=== PATIENT | female | born 1965 | race Caucasian/White ===

== ENCOUNTER → 2017-10-30 | Outpatient (CLI) | payer OTHER ==
[~2017-10-30] MED LIST: BACL10TA PO; COMMODE 3-IN-11 MIS; CPMMACHINE; DIAZ5TAB PO; ECASA81 PO; ESCI20TA PO; IBUP1TAB7 PO; IBUP600 PO; OXYC1TAB36 PO; PERC5TAB12 PO; WALKER WHEELS/F1 MIS
== END ==
LOC: CPRE 11:41
PROVIDERS: ATTEND Orthopaedic Surgery Orthopaedic Surgery of the Spine
DX: M17.11 Unilateral primary osteoarthritis, right knee (principal)

== ENCOUNTER 2017-11-05 06:02 | Inpatient (IN) | payer OTHER ==
[~2017-11-05] VITALS: Ht 154.9 cm; Wt 107.0 kg
[~2017-11-05 06:02] MED LIST changes: -COMMODE 3-IN-11 MIS; -CPMMACHINE; -ECASA81 PO; -IBUP600 PO; -OXYC1TAB36 PO; -WALKER WHEELS/F1 MIS
[2017-11-05] MEDS ORDERED: FAT EMULSION 20% INJ 0 ML ONE (06:42)
[2017-11-05] MEDS ORDERED: CHLORHEXIDINE GLUCONATE 4% SOLN 120 ML BTL TOPICAL SCH (06:45)
[2017-11-05] MEDS ORDERED: INSULIN HUMAN REGULAR 1,000 UNITS/10 ML VIAL SQ PRN (06:45)
[2017-11-05] MEDS ORDERED: CHLORHEXIDINE GLUCONATE 2 % 1 PACK (2 CLOTHS) TOPICAL PRN (06:45)
[2017-11-05] MEDS ORDERED: METOPROLOL TARTRATE 25 MG TAB PO PRN (06:45)
[2017-11-05] MEDS ORDERED: POVIDONE IODINE 5% (ANTISEPSIS KIT) 4 APPLICATIONS EACH NARE PRN (06:45)
[2017-11-05] MEDS ORDERED: SODIUM CHLORID 0.9% 500 ML IV PRN (06:45)
[2017-11-05] MEDS ORDERED: GENTAMICIN SULFATE 80 MG/2 ML VIAL ONE (07:05)
[2017-11-05] MEDS ORDERED: PROPOFOL 500 MG/50 ML INJ 50 ML ONE (07:24)
[2017-11-05] MEDS ORDERED: SODIUM CHLOR 0.9% 250 ML INJ 250 ML ONE (07:24)
[2017-11-05] MEDS ORDERED: VANCOMYCIN HCL 1000 MG VIAL ONE (07:25)
[2017-11-05] MEDS: LACTATED RINGER'S 1000 ML IV PRN (07:30)
[2017-11-05] MEDS ORDERED: BUPIVACAINE HCL PF 0.25% 30 ML VIAL ONE (07:47)
[2017-11-05] MEDS ORDERED: BUPIVACAINE/EPINEPHRINE 0.25% 50 ML VIAL ONE (07:48)
[2017-11-05] MEDS ORDERED: EXPAREL PERI-ARTICULAR INJECTION (TOTAL VOL. 60 ML) P-ARTICULR SCH ×2 (08:30)
[2017-11-05] MEDS ORDERED: TRANEXAMIC ACID INJ 975 MG in SODIUM CHLORIDE 0.9% INJ 100 ML IV SCH (08:30)
[2017-11-05] MEDS ORDERED: MIDAZOLAM HCL 2 MG/2 ML VIAL ONE (08:46)
[2017-11-05] MEDS ORDERED: BUPIVACAINE LIPOSOME PF 1.3% 20 ML VIAL ONE (08:46)
[2017-11-05] MEDS: ceFAZolin 2 GM PREMIX 50 ML IV SCH ×2 (10:25→10:26)
--- NOTE | 2017-11-05 11:13 | PD.OP ---
cc: Morgan Maravilla MD Operative Report Date of Surgery: Nov 05, 2017 Preoperative Diagnosis: Osteoarthritis right knee. Valgus deformity, right knee Postoperative Diagnosis: Same Procedure: Right total knee replacement arthroplasty Anesthesia: Spinal with regional block for pain control Surgeon: Morgan Maravilla Search Engine Marketing Manager(s): MARCEL Longo Operation and Findings: EBL: 50 cc INDICATION: This patient presents with long-standing arthritis of the knee. She has a valgus deformity and significant instability of this developing. Attachment record documents conservative measures. The patient now presents for surgical treatment. NOTE: Catherine Longo PA-C was present for the entire surgical procedure as my educational assistant teacher. In my medical opinion her skill and care was necessary for proper management of this patient. TOURNIQUET TIME: 58 minutes COMPANY: [employer] FEMUR: Size 2, cruciate retaining TIBIA: Size 2, fixed bearing PATELLA: 29 mm POLYETHYLENE INSERT: 11 mm PROCEDURE: This patient was brought the operating room and anesthetized in the supine position. The patient was positioned supine on the table. The tourniquet was placed about the thigh, and the leg was scrubbed with alcohol followed by Hibiclens followed by ChloraPrep and draped sterilely. A timeout was done, and antibiotics were given. After exsanguination the tourniquet was inflated to 250 mmHg. An anterior incision was made and a median parapatellar arthrotomy was performed. The patella was released laterally and subluxed allowing freehand cut of the patella which was then sized. A metal cap was placed over the exposed patellar surface for protection. A airline transport pilot hole was placed in the distal femur allowing a 5 valgus cut removing 10 mm from the distal femur. Anterior posterior and chamfer cuts were made. The posterior stabilize osteotomy was made. The attention was directed to the tibia. Retractors were positioned. The external alignment guide was used allowing the lateral tibia to be used as referencing guide and cut utilizing an oscillating saw taking care to avoid any injury to the surrounding soft tissues. This was sized properly. Trial reduction showed that the insert fit nicely. The patient had range of motion extension 0 flexion 125. A medial release was not necessary. The bony surfaces prepared. On the back table 2 packets of methylmethacrylate were mixed. The components were cemented. Excess cement was removed. The tourniquet let down and hemostasis was controlled. The final plastic insert was inserted. Range of motion was the same as previously noted. A drain was brought through a separate stab incision. The arthrotomy was repaired with interrupted #1 Vicryl suture, subcutaneous tissue 2-0 Vicryl suture and skin with metallic peter A sterile dressing was applied. Sponge counts, needle counts and instrument counts were all correct. The patient tolerated procedure well and was taken to recovery in satisfactory condition. FINDINGS: There was a severe arthritis of the lateral compartment with significant valgus deformity. The final solution was excellent. No complication was appreciated. Morgan Maravilla MD Nov 05, 2017 11:13
[2017-11-05] MEDS ORDERED: oxyCODONE/ACETAMINOPHEN 10 MG/325 MG TAB PO PRN (11:15)
[2017-11-05] MEDS ORDERED: Post-op Orders (for Pharmacy) XX ONE (11:15)
[2017-11-05] MEDS ORDERED: MORPHINE SULFATE 8 MG/ML INJ IM PRN (11:15)
[2017-11-05] MEDS ORDERED: DIAZEPAM 5 MG TAB PO PRN (11:15)
[2017-11-05] MEDS ORDERED: NALOXONE HCL 0.4 MG/ML AMP IV PUSH PRN (11:15)
[2017-11-05] MEDS ORDERED: MISCELLANEOUS NURSING INFORMATION XX PRN (11:15)
[2017-11-05] MEDS ORDERED: MISCELLANEOUS PHARMACY INFORMATION XX ONE (11:15)
[2017-11-05] MEDS ORDERED: ECASA81 PO (11:17)
[2017-11-05] MEDS ORDERED: OXYC1TAB36 PO (11:17)
[2017-11-05] MEDS ORDERED: *morphine SULFATE 4 MG/ML PERIprocedure ONLY ONE (11:38)
[2017-11-05] MEDS ORDERED: *morphine SULFATE 8 MG/ML PERIprocedure ONLY ONE ×2 (11:49→12:12)
[2017-11-05] MEDS: LACTATED RINGER'S 1000 ML INJ 1,000 ML IV SCH ×2 (11:50→23:36)
[2017-11-05] MEDS ORDERED: PROPOFOL 200 MG/20 ML AMP IV ONE (12:00)
[2017-11-05] MEDS ORDERED: ONDANSETRON HCL 4 MG/2 ML VIAL IV ONE (12:00)
[2017-11-05] MEDS ORDERED: ROCURONIUM INJ 50 MG/5 ML SYRINGE IV PUSH ONE (12:00)
[2017-11-05] MEDS ORDERED: DEXAMETHASONE SOD PHOS 4 MG/ML VIAL IV ONE (12:00)
[2017-11-05] MEDS ORDERED: PHENYLEPH/NS 1000 MCG/10 ML SYR IV ONE (12:00)
[2017-11-05] MEDS ORDERED: SODIUM CHLOR 0.9% 1000 ML INJ 1,000 ML IV ONE (12:00)
[2017-11-05] MEDS ORDERED: NEOSTIGMINE 5 MG/5 ML SYRINGE IV PUSH ONE (12:00)
[2017-11-05] MEDS ORDERED: GLYCOPYRROLATE 1 MG/5 ML SYRINGE IV PUSH ONE (12:00)
--- NOTE | 2017-11-05 12:09 | RADRPT ---
EXAM DATE/TIME: 11/05/2017 11:45 [facility] COMPARISON: No previous studies available for comparison. INDICATIONS : Post op right knee surgery. MEDICAL HISTORY : None. SURGICAL HISTORY : None. ENCOUNTER: Initial ACUITY: 1 day PAIN SCORE: 8/10 LOCATION: Right knee FINDINGS: AP and lateral views of the right knee following recent total knee arthroplasty demonstrate metallic hardware at the distal femur and proximal tibia with radiolucent patellar component. No joint effusio n is identified. There is soft tissue gas, as expected. Skin peter are present anteriorly. CONCLUSION: Expected changes following recent right total knee arthroplasty. Bebeto Nuñez MD on November 05, 2017 at 12:06 Board Certified Radiologist. This report was verified electronically.
[2017-11-05] MEDS ORDERED: ASPIRIN EC 81 MG TABEC PO ONE (13:00)
[2017-11-05] MEDS ORDERED: DO NOT ADM ANY ANTICOAGULANT DRUGS PRN ×2 (13:00→14:00)
[2017-11-05 14:00] VITALS: BP 129/64; PULSE 67; RESP 16; TEMP 97; O2SAT 100
--- NOTE | 2017-11-05 14:22 | HHI.DS ---
Discharge Summary Admission Date Nov 05, 2017 at 06:02 Discharge Date: Nov 07, 2017 Admitting Diagnosis Osteoarthritis right knee Diagnosis: Procedures Right total knee replacement arthroplasty Brief History This is a 52 year old female patient with significant lateral compartment arthritis and valgus deformity of the right knee. She's had extensive conservative care which is documented in the attached records. She presents for surgical treatment. She was taken the operating room the date of admission. She was transferred to the floor postoperatively. She had a routine postoperative course for total knee replacement surgery. Imaging Postoperative x-rays show satisfactory total knee replacement surgery without complication PE at Discharge Stable medically. Neurologic examination is normal. Swelling is mild Hospital Course The patient was admitted for surgical treatment. She went to surgery on the date of her admission at which time she had a cemented total knee replacement arthroplasty. There were no complications were noted. Postoperative x-rays were satisfactory. She progressed well to physical therapy was felt be a candidate for discharge to home on the second postoperative day Pt Condition on Discharge: Good Discharge Disposition: Discharge Home Discharge Instructions Diet Instructions: As Tolerated, No Restrictions (Weightbearing as tolerated) Activities You Can Perform: Weight Bearing as Emely Morgan Maravilla MD Nov 05, 2017 14:22
--- NOTE | 2017-11-05 14:23 | HHI.FF ---
Face to Face Verification Diagnosis: (1) Primary osteoarthritis of right knee Physical Therapy Gait training, Safety evaluation, Transfer training, bed to chair Knee: Total knee, Protocol: Right, Full weight bearing Canvas Knee Splint: When in bed & 2 pillows btw thighs Right LE Weight Bearing: WB as tolerated Right LE Range of Motion: Active ROM Additional Instructions PT 4 days/wk for 2 weeks. WBAT RLE. TKA protocol. CPM bid as tolerated, 0-60 with goal of 100 flexion. Nursing RN Days per Week: 2 x Week(s): 1 Dressing Changes: Do not change dressing Additional Instructions Vitals assessment. Dressing assessment - do not change unless saturated. I have seen patient Joseph Byrd on 11/05/17. My clinical findings support the need for the requested home health care services because: Limited ability to care for self High risk of falls I certify that my clinical findings support that this patient is homebound because: Post-op weakness Unsteady gait/balance Morgan Maravilla MD Nov 05, 2017 14:23 Mary Carmen Tavares Nov 05, 2017 22:45
[2017-11-05] MEDS ORDERED: WALKER WHEELS/F1 MIS (14:25)
[2017-11-05 16:12] VITALS: BP 110/57; PULSE 70; RESP 18; TEMP 96.7; O2SAT 99
[2017-11-05] MEDS: oxyCODONE/ACETAMINOPHEN 10 MG/325 MG TAB PO PRN ×2 (16:27→21:54)
[2017-11-05 19:59] VITALS: BP 120/56; PULSE 77; RESP 18; TEMP 97.1; O2SAT 98
[2017-11-05] MEDS: BACLOFEN 10 MG TAB PO SCH (21:53)
[2017-11-05] MEDS: SENNOSIDES 8.6 MG TAB PO SCH (21:53)
[2017-11-05] MEDS: ASPIRIN EC 81 MG TABEC PO SCH (21:53)
[2017-11-05] MEDS: MAGNESIUM HYDROXIDE SUSP 30 ML CUP PO SCH (21:53)
[2017-11-05] MEDS ORDERED: COMMODE 3-IN-11 MIS (22:46)
[2017-11-05] MEDS ORDERED: CPMMACHINE (22:47)
--- NOTE | 2017-11-05 22:49 | HHI.DCPOC ---
Discharge Care Plan Diagnosis: (1) Primary osteoarthritis of right knee Your Health Problems Are: Difficulty with ADL Incision/Drains Swelling Goals to Promote Your Health * To prevent worsening of your condition and complications * To maintain your health at the optimal level Directions to Meet Your Goals Take your medications as prescribed Follow your dietary instruction Follow activity as directed Keep your appointments as scheduled Take your immunizations and boosters as scheduled If your symptoms worsen call your PCP, if no PCP go to Urgent Care Center or Emergency Room Smoking is Dangerous to Your Health. Avoid second hand smoke Call the 24-hour hour crisis hotline for domestic abuse at Mary Carmen Tavares Nov 05, 2017 22:49
[2017-11-05 23:39] VITALS: BP 121/68; PULSE 68; RESP 18; TEMP 97.6; O2SAT 99
[2017-11-06] VITALS (9 sets, daily range): BP systolic 123–157; BP diastolic 60–79; PULSE 71–85; RESP 17–18; TEMP 96.9–98.2; O2SAT 95–99
[2017-11-06] MEDS: oxyCODONE/ACETAMINOPHEN 10 MG/325 MG TAB PO PRN ×5 (02:10→23:59)
[2017-11-06] MEDS: LACTATED RINGER'S 1000 ML IV PRN (02:12)
[2017-11-06 05:23] LABS: HEMATOCRIT 22.3 % (35.0-46.0)
[2017-11-06 05:37] LABS: HEMOGLOBIN 6.8 GM/DL (11.6-15.3)
--- NOTE | 2017-11-06 07:47 | PD.ORT.PN ---
Subjective Subjective Remarks Patient comfortable. Ambulating with minimal assistance using a walker. Objective Vitals Vital Signs Date Time Temp Pulse Resp B/P (MAP) Pulse Ox O2 Delivery O2 Flow Rate FiO2 11/06/17 05:17 97.9 72 18 123/60 (81) 99 11/05/17 23:39 97.6 68 18 121/68 (85) 99 11/05/17 19:59 97.1 77 18 120/56 (77) 98 11/05/17 16:12 96.7 70 18 110/57 (74) 99 11/05/17 14:00 97.0 67 16 129/64 (85) 100 11/05/17 13:30 98.0 71 18 140/70 (93) 94 Room Air 11/05/17 13:15 70 18 118/62 (80) 95 Room Air 11/05/17 13:00 69 18 125/64 (84) 97 Nasal Cannula 3 11/05/17 12:45 73 18 126/61 (82) 97 Nasal Cannula 3 11/05/17 12:30 68 18 139/76 (97) 100 Nasal Cannula 3 11/05/17 12:15 68 18 139/76 (97) 100 Nasal Cannula 3 11/05/17 12:00 74 18 133/75 (94) 98 Nasal Cannula 3 11/05/17 11:45 75 16 141/76 (97) 99 Nasal Cannula 3 11/05/17 11:32 97.7 85 16 138/74 (95) 97 I/O 11/05/17 11/05/17 11/05/17 11/06/17 11/06/17 11/06/17 07:00 15:00 23:00 07:00 15:00 23:00 Intake Total 2300 ml 480 ml 1460 ml Output Total 50 ml Balance 2250 ml 480 ml 1460 ml Intake Oral 600 ml 480 ml 360 ml IV Total 1100 ml Other 1700 ml Output Estimated Blood Loss 50 ml # Voids 1 3 4 # Bowel Movements 0 0 Result Diagram: 11/06/17 0400 Imaging Last 24 hours Impressions Knee X-Ray 11/05/17 1106 Signed Impressions: Service Date/Time: October 11:45 - CONCLUSION: Expected changes following recent right total knee arthroplasty. Bebeto Nuñez MD Procedures Right total knee replacement arthroplasty Objective Remarks Dressing dry. Alignment looks satisfactory. Hemoglobin 6.8, but was only 8.3 preoperative. No calf tenderness. Neuro exam normal Assessment & Plan Assessment and Plan Osteoarthritis right knee. Valgus deformity right knee. Surgery: Right TKA: POD #1. PLAN: Weightbearing as tolerated. Transfused 2 units packed red blood cells. Check hemoglobin in the morning. Discharge to home on Thursday morning. No dressing change. Home healthcare and home PT. Aspirin 81 mg twice a day for 30 days. Oxycodone 10 for pain. Was on pain medicines before surgery Morgan Maravilla MD Nov 06, 2017 07:47
[2017-11-06] MEDS: ASPIRIN EC 81 MG TABEC PO SCH ×2 (07:58→20:07)
[2017-11-06] MEDS: MAGNESIUM HYDROXIDE SUSP 30 ML CUP PO SCH ×2 (07:58→20:08)
[2017-11-06] MEDS: ESCITALOPRAM OXALATE 20 MG TAB PO SCH (07:58)
[2017-11-06] MEDS: BACLOFEN 10 MG TAB PO SCH (20:07)
[2017-11-06] MEDS: SENNOSIDES 8.6 MG TAB PO SCH (20:08)
[2017-11-07] MEDS: LACTATED RINGER'S 1000 ML INJ 1,000 ML IV SCH (00:36)
[2017-11-07] MEDS: oxyCODONE/ACETAMINOPHEN 10 MG/325 MG TAB PO PRN ×2 (03:54→08:21)
[2017-11-07 05:30] VITALS: BP 141/70; PULSE 80; RESP 17; TEMP 97.7; O2SAT 96
[2017-11-07 07:32] VITALS: BP 129/58; PULSE 75; RESP 18; TEMP 97.5; O2SAT 96
--- NOTE | 2017-11-07 07:55 | PD.ORT.PN ---
Subjective Post Op Day #: 2 Subjective Remarks pain tolerable. feeling better. Objective Vitals Vital Signs Date Time Temp Pulse Resp B/P (MAP) Pulse Ox O2 Delivery O2 Flow Rate FiO2 11/07/17 07:32 97.5 75 18 129/58 (81) 96 11/07/17 05:30 97.7 80 17 141/70 (93) 96 11/06/17 23:30 97.5 84 18 157/72 (100) 96 11/06/17 20:15 98.2 83 17 136/71 (92) 97 11/06/17 17:15 97.4 85 17 140/72 95 11/06/17 16:00 97.3 71 18 139/79 (99) 97 11/06/17 15:00 97.3 71 18 139/79 97 11/06/17 12:15 96.9 76 18 144/75 96 11/06/17 12:00 97.9 74 17 128/68 96 11/06/17 12:00 97.9 74 17 128/68 (88) 96 11/06/17 08:23 97.7 76 18 130/70 (90) 99 I/O 11/06/17 11/06/17 11/06/17 11/07/17 11/07/17 11/07/17 07:00 15:00 23:00 07:00 15:00 23:00 Intake Total 1460 ml 1150 ml 880 ml 0 ml Balance 1460 ml 1150 ml 880 ml 0 ml Intake Oral 360 ml 750 ml 480 ml IV Total 1100 ml 0 ml Packed Cells 400 ml 400 ml Blood Product IV Normal Saline Flush 0 ml # Voids 4 5 2 # Bowel Movements 0 0 0 Result Diagram: 11/07/17 0417 Imaging Last 24 hours Impressions Knee X-Ray 11/05/17 1106 Signed Impressions: Service Date/Time: October 11:45 - CONCLUSION: Expected changes following recent right total knee arthroplasty. Bebeto Nuñez MD Procedures Right total knee replacement arthroplasty Objective Remarks in bed, nad Dressing dry. No calf tenderness. Neuro exam normal Assessment & Plan Ortho Post Op Day #: 2 Problem List: Assessment and Plan Osteoarthritis right knee. Valgus deformity right knee. Surgery: Right TKA: POD #2. PLAN: Weightbearing as tolerated. Transfused 2 units packed red blood cells yesterday Discharge to home on Thursday morning - cleared for d/c No dressing change. Home healthcare and home PT. Aspirin 81 mg twice a day for 30 days. Oxycodone 10 for pain. Was on pain medicines before surgery Tai Stanley Nov 07, 2017 07:55
[2017-11-07] MEDS: MAGNESIUM HYDROXIDE SUSP 30 ML CUP PO SCH (08:19)
[2017-11-07] MEDS: ESCITALOPRAM OXALATE 20 MG TAB PO SCH (08:20)
[2017-11-07] MEDS: ASPIRIN EC 81 MG TABEC PO SCH (08:20)
[2017-11-07 11:42] VITALS: BP 130/62; PULSE 80; RESP 18; TEMP 97.4; O2SAT 95
== END 2017-11-07 12:36 | disposition home health service (06) | DRG 470 ==
LOC: HSDI 06:02 → N06B 14:01
PROVIDERS: ADMIT Orthopaedic Surgery Orthopaedic Surgery of the Spine; ATTEND Orthopaedic Surgery Orthopaedic Surgery of the Spine
PROC: 3E0T3BZ Introduction of Anesthetic Agent into Peripheral Nerves and Plexi, Percutaneous Approach (ICD-10-PCS; 2017-11-05)
PROC: 0SRC0J9 Replacement of Right Knee Joint with Synthetic Substitute, Cemented, Open Approach (ICD-10-PCS; principal; 2017-11-05 09:03)
PROC: 30233N1 Transfusion of Nonautologous Red Blood Cells into Peripheral Vein, Percutaneous Approach (ICD-10-PCS; 2017-11-06)
DX: M17.11 Unilateral primary osteoarthritis, right knee (principal); Z68.41 Body mass index [BMI] 40.0-44.9, adult; F32.9 Major depressive disorder, single episode, unspecified; F41.9 Anxiety disorder, unspecified; F17.210 Nicotine dependence, cigarettes, uncomplicated; M21.061 Valgus deformity, not elsewhere classified, right knee; E66.9 Obesity, unspecified; D64.9 Anemia, unspecified
CPT/HCPCS: 36430; 73560; 85014; 85018; 86850; 86900; 86901; 86920; 94150; C1776; C9290; J0690; J1100; J1580; J2250; J2270; J2370; J2405; J2710; J3010; J3370; J7030; J7050; J7120; L1830; P9016

== ENCOUNTER 2017-12-11 23:17 | Emergency (ER) | payer OTHER ==
[~2017-12-11] VITALS: Ht 154.9 cm; Wt 96.0 kg
[~2017-12-11 23:17] MED LIST changes: +COMMODE 3-IN-11 MIS; +CPMMACHINE; +ECASA81 PO; +OXYC1TAB36 PO; +WALKER WHEELS/F1 MIS
[2017-12-11 23:22] VITALS: BP 140/75; PULSE 86; RESP 18; TEMP 97.4; O2SAT 100
[2017-12-12] MEDS ORDERED: HYDR-3516 PO (08:37)
[2017-12-12] MEDS ORDERED: CLIN150C14 PO (08:37)
== END 2017-12-11 23:49 | disposition left against medical advice (07) ==
LOC: PHED 23:17
DX: K08.89 Other specified disorders of teeth and supporting structures (principal); Z53.21 Procedure and treatment not carried out due to patient leaving prior to being seen by health care provider
CPT/HCPCS: 99281

== ENCOUNTER 2017-12-12 08:16 | Emergency (ER) | payer OTHER ==
[~2017-12-12] VITALS: Ht 154.9 cm; Wt 93.0 kg
[2017-12-12 08:19] VITALS: BP 177/90; PULSE 83; RESP 16; TEMP 97.9; O2SAT 99
[2017-12-12] MEDS ORDERED: CLIN150C14 PO (08:37)
[2017-12-12] MEDS ORDERED: HYDR-3516 PO (08:37)
--- NOTE | 2017-12-12 08:38 | PD ---
HPI Chief Complaint: Tooth pain Time Seen by Provider: 08:31 Travel History International Travel<30 days: No Contact w/Intl Traveler<30days: No Traveled to known affect area: No History of Present Illness HPI Patient presents with complaints of fractured front tooth. States she is scheduled to see her dentist on Thursday. Reports uncontrolled pain. She is a smoker. PFSH Past Medical History Cancer: No Cardiovascular Problems: No Diabetes: No Diminished Hearing: No Endocrine: No Genitourinary: Yes (KIDNEY STONES) Hepatitis: No Hiatal Hernia: No Immune Disorder: No Kidney Stones: Yes Neurologic: No Psychiatric: Yes Reproductive: No Respiratory: No Immunizations Current: No Thyroid Disease: No Past Surgical History AICD: No Genitourinary Surgery: Yes (KIDNEY STONE REMOVED) Joint Replacement: No Other Surgery: Yes (CARPAL TUNNEL RIGHT WRIST) Social History Alcohol Use: Yes (RARE) Tobacco Use: Yes (1/2 PACK DAY) Substance Use: No Allergies-Medications (Allergen,Severity, Reaction): Coded Allergies: penicillin G (Verified Adverse Reaction, Severe, RASH, 12/11/17) tramadol (Unverified Adverse Reaction, Mild, SYNCOPAL EPISODE, 12/11/17) Reported Meds & Prescriptions Reported Meds & Active Scripts Active CPM-Continuous Passive Motion Machine 1 Ea Device Ea .XX DIRECTED Commode 3-in-1 (Device) 1 Mis Mis Ea .XX DIRECTED Walker with Front Wheels (Device) 1 Mis Mis Ea .XX DIRECTED Oxycodone-Acetaminophen 10-325 (Oxycodone HCl/Acetaminophen) 10 Mg-325 Mg Tablet 1 Tab PO Q4H PRN Aspirin DR (Aspirin) 81 Mg Tabdr 81 Mg PO BID Reported Ibuprofen 800 Mg Tab 800 Mg PO Q8H PRN Baclofen 10 Mg Tab 10 Mg PO HS Percocet (Oxycodone-Acetaminophen) 5-325 mg Tab 1 Tab PO BID PRN Diazepam 5 Mg Tab 5 Mg PO BID PRN Escitalopram (Escitalopram Oxalate) 20 Mg Tab 20 Mg PO DAILY Review of Systems General / Constitutional: No: Fever Eyes: No: Visual changes HENT: Positive: Dental Difficulties, No: Headaches Cardiovascular: No: Chest Pain or Discomfort Respiratory: No: Shortness of Breath Gastrointestinal: No: Abdominal Pain Genitourinary: No: Dysuria Musculoskeletal: No: Pain Skin: No Rash Neurologic: No: Weakness Psychiatric: No: Depression Endocrine: No: Polydipsia Hematologic/Lymphatic: No: Easy Bruising Physical Exam Narrative GENERAL: Well-nourished, well-developed patient. SKIN: Focused skin assessment warm/dry. HEAD: Normocephalic. EYES: No scleral icterus. No injection or drainage. NECK: Supple, trachea midline. No JVD or lymphadenopathy. CARDIOVASCULAR: Regular rate and rhythm without murmurs, gallops, or rubs. RESPIRATORY: Breath sounds equal bilaterally. No accessory muscle use. GASTROINTESTINAL: Abdomen soft, non-tender, nondistended. MUSCULOSKELETAL: No cyanosis, or edema. BACK: Nontender without obvious deformity. No CVA tenderness. Overall poor dentition, no obvious swelling, fractured front tooth central incisor Data Data Last Documented VS Vital Signs Date Time Temp Pulse Resp B/P (MAP) Pulse Ox O2 Delivery O2 Flow Rate FiO2 12/12/17 08:19 97.9 83 16 177/90 (119) 99 Room Air MDM Medical Decision Making Medical Screen Exam Complete: Yes Emergency Medical Condition: Yes Differential Diagnosis Dentalgia, malingering, tooth abscess, drug-seeking behavior Narrative Course Assessment plan discussed with patient at bedside Diagnosis Primary Impression: Dentalgia Additional Instructions: Encouraged to keep her regular scheduled appointment with her dentist, return to emerge from with any onset of new symptoms, antibiotic prophylactically, encouraged smoking cessation Med/Other Pt SpecificInfo: Prescription(s) given Scripts Hydrocodone-Acetaminophen (Hydrocodone-Acetaminophen) 5-325 mg Tab 1 TAB PO TID Y for PAIN, #10 TAB 0 Refills Prov: Kedar Choudhury MD 12/12/17 Clindamycin (Clindamycin) 150 Mg Cap 150 MG PO Q6H for Infection for 5 Days, #20 CAP 0 Refills Prov: Kedar Choudhury MD 12/12/17 Disposition: 01 DISCHARGE HOME Condition: Good Kedar Choudhury MD Dec 12, 2017 08:38
== END 2017-12-12 08:46 | disposition home or self-care (01) ==
LOC: PHED 08:16
DX: K08.89 Other specified disorders of teeth and supporting structures (principal); F17.210 Nicotine dependence, cigarettes, uncomplicated
CPT/HCPCS: 99283